=== PATIENT | male | born 1965 ===

== ENCOUNTER 2024-10-22 12:04 | Day surgery (SDC) | payer BC ==
[~2024-10-22] VITALS: Ht 177.8 cm; Wt 85.7 kg
[~2024-10-22 12:04] MED LIST: Bupivacaine 0.5% W/EPI 1:200000 SDV 30 ML Vial ONE; OMEPRAZOLE20 MG PO
[2024-10-22] MEDS ORDERED: Lactated Ringer's 1,000 ML IV ONE (12:30)
[2024-10-22] MEDS ORDERED: STELARA45 MG/0.3 (12:41)
[2024-10-22] MEDS ORDERED: CeFAZolin Sodium 2,000 MG VIAL ONE (12:57)
[2024-10-22] MEDS ORDERED: propofoL 20 ML IV ONE (13:05)
[2024-10-22] MEDS ORDERED: FentaNYL Citrate 50 MCG/ML 2 ML Injection ONE (13:12)
[2024-10-22] MEDS ORDERED: Ondansetron HCl 2 MG / ML 2ML Vial ONE (13:17)
[2024-10-22] MEDS ORDERED: Dexamethasone Sod Phos 10 MG/ML 1ML VIAL ONE (13:17)
--- NOTE | 2024-10-22 13:47 | NUR ---
10/22/24 1347 ZACK GUIDO PT AWAKE. DECREASED O2 FROM 8L VIA NON-REBREATH TO 6L. ONCE AWAKE, TOOK O2 OFF PT AND IS RUNNING 100% ON RA
[2024-10-22 14:01] VITALS: BP 122/82
[2024-10-22] MEDS ORDERED: HYDROcodone 5-APAP 325 TAB ONE (14:28)
--- NOTE | 2024-10-22 15:27 | NUR ---
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 ALSO TO ASSIST WITH DISCUSSING MEDICATING PT FOR PAIN. NORCO 5/325MG WAS GIVEN PO FOR PAIN 4-5/10. PT ADMITS THAT PAIN TOLERABLE AT 5/10. PT DID NOT HAVE ANY PAIN UNTIL HE TRANSFERRED INTO RECLINER FROM BED. PAIN WENT FROM 0 TO 5/10
== END 2024-10-22 15:10 | disposition home or self-care (01) ==
LOC: ORSCSDS 12:04
PROVIDERS: Podiatrist Foot & Ankle Surgery
PROC: 0QBL0ZZ Excision of Right Tarsal, Open Approach (ICD-10-PCS; principal; 2024-10-22 13:15)
PROC: 0QCL0ZZ Extirpation of Matter from Right Tarsal, Open Approach (ICD-10-PCS; principal; 2024-10-22 13:15)
DX: S91.341A Puncture wound with foreign body, right foot, initial encounter (principal); W34.00XA Accidental discharge from unspecified firearms or gun, initial encounter
CPT/HCPCS: A6253; A9270; J0690; J1100; J2405; J2704; J3010